=== PATIENT | female | born 1965 | race Caucasian/White ===

== ENCOUNTER 2019-01-19 20:28 | Emergency (ER) | payer OTHER, BC ==
[~2019-01-19] VITALS: Ht 175.3 cm; Wt 90.7 kg
[~2019-01-19 20:28] MED LIST: CIPR500T78 PO; CLIN300C3 PO; GABA-486 PO; LEVO125T PO; LEVO75TA57 PO; NAPR-689 PO
--- NOTE | 2019-01-19 20:35 | NUR ---
pt to [facility]
[2019-01-19] MEDS ORDERED: HYDROcodone/APAP 5 MG/325 MG (LORTAB) TAB PO ONE (20:45)
[2019-01-19] MEDS ORDERED: IBUPROFEN 800 MG (MOTRIN) TAB PO ONE (20:45)
--- NOTE | 2019-01-19 20:49 | ED Upper Extremity ---
General Chief Complaint: Upper Extremity Stated Complaint: R HAND PAIN Nursing Triage Note: right distal index/middle finger caught in sliding wall at work. Nursing Sepsis Screen: No Definite Risk Source: patient Exam Limitations: no limitations History of Present Illness Date Seen by Provider: Jan 19, 2019 Time Seen by Provider: 20:47 Initial Comments ER with right pointer and middle finger pain after getting it caught between 2 doors at work while moving fake [employer] at [facility] after an event tonight. Onset: just prior to arrival Severity: moderate Pain/Injury Location: right 2nd finger, right 3rd finger Method of Injury: direct blow Modifying Factors: Worse With Movement Allergies and Home Medications Allergies Coded Allergies: Penicillins (Verified Allergy, Unknown, HIVES, 02/10/14) amoxicillin (Verified Allergy, Unknown, HIVES, 02/10/14) Home Medications Ciprofloxacin HCl 500 Mg Tablet, 500 MG PO BID Prescribed by: HYACINTH RILEY on 02/10/1455 Clindamycin Hcl 300 Mg Capsule, 1 EACH PO QID Prescribed by: HYACINTH RILEY on 02/10/1455 Gabapentin 100 Mg Capsule, 100 MG PO TID PRN for 2 AT HS, (Reported) Levothyroxine Sodium 125 Mcg Tablet, 1.5 EACH PO DAILY, (Reported) Naproxen 500 Mg Tablet, 500 MG PO BID, (Reported) Patient Home Medication List Home Medication List Reviewed: Yes Review of Systems Constitutional: see HPI EENTM: see HPI Respiratory: no symptoms reported Cardiovascular: no symptoms reported Genitourinary: no symptoms reported Musculoskeletal: see HPI Skin: no symptoms reported Psychiatric/Neurological: No Symptoms Reported Past [id number] Hx Patient Social History Alcohol Use: Denies Use Recreational Drug Use: No Smoking Status: Never a Smoker 2nd Hand Smoke Exposure: Yes Recent Foreign Travel: No Contact w/Someone Who Travel: No Recent Infectious Disease Expo: No Recent Hopitalizations: No Physical Abuse: No Sexual Abuse: No Mistreated: No Fear: No Immunizations Up To Date Tetanus Booster (TDap): Unknown Seasonal Allergies Seasonal Allergies: No Past Medical History Surgeries: Yes (RIGHT ULNER NERVER REPAIR) Appendectomy, Section, Tubal Ligation Respiratory: No Cardiac: No Neurological: Yes Neuropathy : No 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 oz. [id number]; 29.00 BMI Method:Stated General Appearance: WD/WN, no apparent distress Neck: non-tender, full range of motion Respiratory: no respiratory distress, no accessory muscle use Gastrointestinal: normal bowel sounds, non tender Shoulder: normal inspection, non-tender Elbow/Forearm: normal inspection, non-tender Wrist: Yes normal inspection, Yes non-tender Hand: Right, limited ROM (bruising and swelling to the DIP joint right middle finger. Right middle finger has limited flexion at the PIP and DIP joint due to pain but there is no visible deformity. Capillary refill of fingertips is brisk.) Neurologic/Psychiatric: alert, normal mood/affect, oriented x 3 Skin: normal color, warm/dry Progress/Results/Core Measures Results/Orders My Orders Orders - MAILE ALFREDO APRN Hand, Right, 3 Views (01/19/19 20:42) Hydrocodone/Apap 5/325 Tablet (Lortab 5 (01/19/19 20:45) Ibuprofen Tablet (Motrin Tablet) (01/19/19 20:45) Rx-Hydrocodone/Apap 5-325 Mg (Rx-Vicodin (01/19/19 22:00) Medications Given in ED Current Medications Medications Dose Ordered Sig/Jacinto Route Start Time Stop Time Status Last Admin Dose Admin Acetaminophen/ Hydrocodone Bitart 1 ea Q4H PRN PO 01/19/19 22:00 01/19/19 22:13 DC 01/19/19 22:06 1 EA Acetaminophen/ Hydrocodone Bitart 1 tab ONCE ONCE PO 01/19/19 20:45 01/19/19 20:46 DC 01/19/19 20:48 1 TAB Ibuprofen 800 mg ONCE ONCE PO 01/19/19 20:45 01/19/19 20:46 DC 01/19/19 20:48 800 MG Vital Signs/I&O 01/19/19 01/19/19 20:30 22:07 Temp 36.7 36.5 Pulse 97 88 Resp 18 16 B/P (MAP) 167/105 (125) 156/91 (125) Pulse Ox 100 99 O2 Delivery Room Air Room Air Blood Pressure Mean: 125 POS Departure Impression Primary Impression: Contusion of hand Qualified Codes: S60.221A - Contusion of right hand, initial encounter Disposition: HOME, SELF-CARE Condition: Stable Departure-Patient Inst. Decision time for Depature: 21:20 Referrals: EDIE DOTY MD (PCP/Family) Primary Care Physician Patient Instructions: Contusion (DC) Add. Discharge Instructions: 1. Return to ER for any concerns 2. Follow-up with your doctor next week 3. Tylenol and appropriate for pain control. All discharge instructions reviewed with patient and/or family. Voiced understanding. MIALE ALFREDO APRN Jan 19, 2019 20:49 POS
[2019-01-19] MEDS ORDERED: RX-HYDROCODONE/APAP 5/325 MG #4 TAB PK PO PRN (22:00)
[2019-01-19 22:07] VITALS: BP 156/91
--- NOTE | 2019-01-19 22:10 | Diagnostic Imaging Report ---
EXAMINATION: Right hand radiographs, 3 views. COMPARISON: None. HISTORY: 53-year-old female, injury. Pain of the distal index and middle fingers. FINDINGS: There is no identified acute fracture. There is no radiopaque foreign body. There is no prominent focal soft tissue swelling. Joint spaces appear well preserved. IMPRESSION: No identified acute bony abnormality of the right hand. Dictated by: Dictated on workstation # [id number]
== END 2019-01-19 22:12 | disposition home or self-care (01) ==
LOC: EDUNIT# 20:28 → ER 20:31
DX: S60.221A Contusion of right hand, initial encounter (principal); G62.9 Polyneuropathy, unspecified; E03.9 Hypothyroidism, unspecified; Z90.49 Acquired absence of other specified parts of digestive tract; Z98.51 Tubal ligation status; Z88.0 Allergy status to penicillin; Z77.22 Contact with and (suspected) exposure to environmental tobacco smoke (acute) (chronic); W23.1XXA Caught, crushed, jammed, or pinched between stationary objects, initial encounter; Y92.59 Other trade areas as the place of occurrence of the external cause
CPT/HCPCS: 29130; 73130